=== PATIENT | male | born 1985 | race Caucasian/White ===

== ENCOUNTER 2018-01-24 01:51 | Emergency (ER) | payer OTHER ==
[~2018-01-24] VITALS: Ht 177.8 cm; Wt 81.6 kg
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
--- NOTE | 2018-01-24 02:07 | NUR ---
RADIOLOGY AT BEDSIDE
[2018-01-24] MEDS ORDERED: KETOROLAC TROMETHAMINE INJ 30 MG/ML VIAL ONE (02:10)
[2018-01-24] MEDS ORDERED: KETOROLAC TROMETHAMINE INJ 60 MG/2 ML VIAL IM ONE (02:30)
--- NOTE | 2018-01-24 02:45 | NUR ---
EMT TECH AT BEDSIDE FOR SPLINT APPLICATION AND EDUCATION
[2018-01-24 03:06] VITALS: BP 128/86
--- NOTE | 2018-01-24 03:06 | NUR ---
Patient discharged to home in stable condition. Written and verbal after care instructions given. Patient verbalizes understanding of instruction.
== END 2018-01-24 03:07 | disposition home or self-care (01) ==
LOC: ER 01:53
DX: M65.4 Radial styloid tenosynovitis [de Quervain] (principal); M65.9 Synovitis and tenosynovitis, unspecified
CPT/HCPCS: 29125; 73110; 96372; 99283; A4606; J1885; Z7610

== ENCOUNTER 2018-02-09 01:36 | Emergency (ER) | payer OTHER ==
[~2018-02-09] VITALS: Ht 180.3 cm; Wt 79.4 kg
[2018-02-09 01:50] VITALS: BP 130/72
[2018-02-09] MEDS ORDERED: DEXAMETHASONE SOD PHOSPHATE 4 MG/ML VIAL ONE (02:09)
[2018-02-09] MEDS ORDERED: DEXAMETHASONE SOD PHOSPHATE 4 MG/ML VIAL IM ONE (02:30)
== END 2018-02-09 02:23 | disposition home or self-care (01) ==
LOC: ER 01:39
DX: M65.4 Radial styloid tenosynovitis [de Quervain] (principal); Z88.1 Allergy status to other antibiotic agents
CPT/HCPCS: J1100

== ENCOUNTER 2018-02-14 02:45 | Emergency (ER) | payer OTHER ==
[~2018-02-14] VITALS: Ht 177.8 cm; Wt 79.4 kg
[2018-02-14 03:11] VITALS: BP 130/77
== END 2018-02-14 04:03 | disposition home or self-care (01) ==
LOC: ER 02:45
DX: M65.4 Radial styloid tenosynovitis [de Quervain] (principal); F17.200 Nicotine dependence, unspecified, uncomplicated; Z88.1 Allergy status to other antibiotic agents
CPT/HCPCS: 99283; A4606; Z7610

== ENCOUNTER 2018-02-26 19:31 | Emergency (ER) | payer OTHER ==
[~2018-02-26] VITALS: Ht 180.3 cm; Wt 79.4 kg
[2018-02-26 19:38] VITALS: BP 122/88
== END 2018-02-26 20:01 | disposition home or self-care (01) ==
LOC: ER 19:34
DX: M79.641 Pain in right hand (principal); F17.200 Nicotine dependence, unspecified, uncomplicated; Z88.1 Allergy status to other antibiotic agents

== ENCOUNTER 2018-11-26 02:43 | Emergency (ER) | payer OTHER ==
[~2018-11-26] VITALS: Ht 182.9 cm; Wt 83.9 kg
[2018-11-26 03:17] VITALS: BP 127/75
--- NOTE | 2018-11-26 03:35 | NUR ---
PT NAME CALLED IN WAITING ROOM AREA, NO RESPONSE.
--- NOTE | 2018-11-26 03:43 | NUR ---
PT NAME CALLED IN WAITING ROOM AREA, NO RESPONSE.
== END 2018-11-26 04:07 | disposition left against medical advice (07) ==
LOC: ER 02:44
DX: Z53.21 Procedure and treatment not carried out due to patient leaving prior to being seen by health care provider (principal); M79.644 Pain in right finger(s); F17.200 Nicotine dependence, unspecified, uncomplicated; Z88.1 Allergy status to other antibiotic agents

== ENCOUNTER 2019-06-16 02:48 | Emergency (ER) | payer OTHER ==
[~2019-06-16] VITALS: Ht 182.9 cm; Wt 81.6 kg
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
[2019-06-16] MEDS ORDERED: TDAP [DIPH/PERTUSSIS/TET] 0.5 ML VIAL IM ONE (03:13)
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
[2019-06-16] MEDS: TDAP [DIPH/PERTUSSIS/TET] 0.5 ML VIAL IM ONE (03:17)
[2019-06-16] MEDS ORDERED: LIDOCAINE 1%-EPI 1:100,000 20 ML VIAL ONE (03:23)
--- NOTE | 2019-06-16 03:37 | NUR ---
MD AT BEDSIDE FOR SUTURES
--- NOTE | 2019-06-16 03:51 | NUR ---
Patient discharged to home in stable condition. Written and verbal after care instructions given. Patient verbalizes understanding of instruction. Pt ambulated with steady gait. VSS.
[2019-06-16 03:52] VITALS: BP 121/78
== END 2019-06-16 03:52 | disposition home or self-care (01) ==
LOC: ER 02:49
DX: S01.112A Laceration without foreign body of left eyelid and periocular area, initial encounter (principal); S09.8XXA Other specified injuries of head, initial encounter; Z88.1 Allergy status to other antibiotic agents; Y04.8XXA Assault by other bodily force, initial encounter; Y93.89 Activity, other specified; Y92.89 Other specified places as the place of occurrence of the external cause; Y99.8 Other external cause status
CPT/HCPCS: 12011; 90471; 90715; 99283; A6403; J3490

== ENCOUNTER 2020-02-17 21:10 | Emergency (ER) | payer OTHER ==
[~2020-02-17] VITALS: Ht 182.9 cm; Wt 81.6 kg
[2020-02-17 21:16] VITALS: BP 143/79
== END 2020-02-17 21:48 ==
LOC: ER 21:10
DX: S09.8XXA Other specified injuries of head, initial encounter (principal); F11.23 Opioid dependence with withdrawal; Z02.89 Encounter for other administrative examinations; Z88.1 Allergy status to other antibiotic agents; W22.8XXA Striking against or struck by other objects, initial encounter; Y93.89 Activity, other specified; Y92.89 Other specified places as the place of occurrence of the external cause; Y99.8 Other external cause status

== ENCOUNTER 2020-02-17 23:08 | Emergency (ER) | payer OTHER ==
[~2020-02-17] VITALS: Ht 182.9 cm; Wt 81.6 kg
[2020-02-17 23:19] VITALS: BP 148/88
== END 2020-02-17 23:39 ==
LOC: ER 23:08
DX: Z02.89 Encounter for other administrative examinations (principal); F17.200 Nicotine dependence, unspecified, uncomplicated; Z88.1 Allergy status to other antibiotic agents